=== PATIENT | male | born 1980 | race Caucasian/White ===

== ENCOUNTER 2018-01-04 19:50 | Inpatient (IN) | payer OTHER ==
[~2018-01-04] VITALS: Ht 185.4 cm; Wt 106.6 kg
--- NOTE | 2018-01-04 19:56 | NUR ---
CALLED FOR PT NO ANSWER
[2018-01-04] MEDS ORDERED: KETAMINE HCL 500 MG/10 ML INJ IV ONE (21:00)
[2018-01-04] MEDS ORDERED: CLINDAMYCIN PHOSPHATE IV 600 MG in IV DEXTROSE 5% 100 ML IV ONE (21:00)
[2018-01-04] MEDS ORDERED: IV NORMAL SALINE 1000 ML BAG IV ONE (21:00)
[2018-01-04] MEDS ORDERED: VANCOMYCIN IV 1,000 MG in IV DEXTROSE 5% 250 ML IV ONE (21:00)
[2018-01-04] MEDS ORDERED: GENTAMICIN SULFATE INJ 80 MG in IV DEXTROSE 5% 100 ML IV ONE (21:00)
--- NOTE | 2018-01-04 21:00 | NUR ---
pt aox4. here with c/o swelling and pain to L hand x2days. pt with pain of 9/10, otherwise pt in no acute distress. pt respirations are equal and unlabored. significant other is at bedside
[2018-01-04] MEDS ORDERED: GENTAMICIN SULFATE 80 MG/2 ML VIAL ONE (21:24)
[2018-01-04] MEDS ORDERED: FENTANYL CITRATE 100 MCG/2 ML AMPUL IV ONE (21:30)
[2018-01-04] MEDS ORDERED: FENTANYL CITRATE 100 MCG/2 ML AMPUL ONE (21:32)
[2018-01-04 21:39] LABS: BASOPHILS % (AUTO) 0.3 % (0.0-2.0); EOSINOPHILS # (AUTO) 0.1 K/uL (0.0-0.7); EOSINOPHILS % (AUTO) 1.1 % (0.0-7.0); HEMATOCRIT 37.3 % (36.7-47.1); HEMOGLOBIN 12.9 g/dL (12.5-16.3); LYMPHOCYTES # (AUTO) 1.6 K/uL (20.0-40.0); LYMPHOCYTES % (AUTO) 14.2 % (20.5-51.5); MEAN CORPUSCULAR HEMOGLOBIN 27.8 uug (23.8-33.4); MEAN CORPUSCULAR HGB CONC 35 g/dL (32.5-36.3); MEAN CORPUSCULAR VOLUME 80.3 fL (73.0-96.2); MONOCYTES # (AUTO) 0.7 K/uL (2.0-10.0); MONOCYTES % (AUTO) 5.7 % (0.0-11.0); NEUTROPHILS % (AUTO) 78.7 % (38.5-71.5); PLATELET COUNT (AUTO) 156 K/uL (152-348); RED BLOOD CELL COUNT(AUTO) 4.65 MIL/uL (4.06-5.63); WHITE BLOOD COUNT (AUTO) 11.4 K/uL (3.6-10.2)
--- NOTE | 2018-01-04 21:47 | NUR ---
US at bedside.
[2018-01-04 21:48] LABS: CREATININE 0.9 mg/dL (0.6-1.3); POTASSIUM 3.5 mmol/L (3.5-5.1)
[2018-01-04 22:01] LABS: BILIRUBIN,DIRECT 0.3 mg/dL (0.0-0.2); BILIRUBIN,TOTAL 1.3 mg/dL (0.2-1.0); TOTAL PROTEIN, SERUM 7.3 g/dL (6.4-8.2)
[2018-01-04] MEDS ORDERED: CLINDAMYCIN PHOSPHATE 600 MG/4 ML VIAL ONE (22:20)
--- NOTE | 2018-01-04 22:25 | NUR ---
xray at bedside
--- NOTE | 2018-01-04 22:55 | NUR ---
epic paged per .
[2018-01-05] MEDS ORDERED: VANCOMYCIN IV 200 ML ONE (00:57)
--- NOTE | 2018-01-05 01:42 | NUR ---
Patient is resting comfortably in bed with eyes closed
--- NOTE | 2018-01-05 02:23 | NUR ---
Chandan francis in ED - 01/05/18 at 0225 by RUSSELL pt ambulated to bathroom and back to bed with steady and stable gait. in no acute distress
--- NOTE | 2018-01-05 02:45 | NUR ---
report given to inpt nurse Fina SHARMA. fluids infusing during transfer.
[2018-01-05 03:08] VITALS: BP 122/71
[2018-01-05] MEDS ORDERED: ACETAMINOPHEN 325 MG TABLET PO PRN (03:30)
[2018-01-05] MEDS ORDERED: Z GUARD REMEDY PASTE 57 GM TUBE TOP PRN (03:30)
[2018-01-05] MEDS ORDERED: ONDANSETRON 4 MG/2 ML VIAL IV PRN (03:30)
[2018-01-05] MEDS: ENOXAPARIN SODIUM 40 MG/0.4 ML DISP.SYRIN SQ SCH (03:42)
[2018-01-05] MEDS: FENTANYL CITRATE 100 MCG/2 ML AMPUL IV PRN ×2 (03:50→18:12)
--- NOTE | 2018-01-05 03:50 | NUR ---
NEW ADMIT FROM ER, ADMITTED FOR CELLULITIS OF LEFT HAND. PATIENT IS AAOX3 C/O PAIN 10/10 IN LEFT HAND, PAIN MEDS GIVEN ORDERED. SAFETY MEASURES IN PLACE
--- NOTE | 2018-01-05 05:33 | NUR ---
[facility] CALLED AND LEFT MESSAGE FOR SEPSIS REASSESSMENT FLUID CHALLENGE. VSS ASSESSED AND WNL
[2018-01-05] MEDS ORDERED: PIPERACILLIN/TAZO 4.5 GM VIAL IV ONE (06:05)
[2018-01-05] MEDS: PIPERACILLIN SODIUM/TAZOBACTAM 4.5 G in IV DEXTROSE 5% 50 ML IV SCH ×3 (06:53→21:31)
--- NOTE | 2018-01-05 07:10 | NUR ---
RECEIVED REPORT FROM TELE MARKETING EXECUTIVE NURSE, PATIENT IN BED ASLEEP, NO EVIDENCE OF DISTRESS NOTED AT THIS TIME, BED IN LOW POSITION, SIDE RAILS UP X2. PATIENTS SIGNIFICANT OTHER AT BEDSIDE.
[2018-01-05 07:23] LABS: *BILIRUBIN,URIN NEGATIVE (NEGATIVE); *BLOOD, URINE NEGATIVE (NEGATIVE); *CLARITY,URINE CLEAR (CLEAR); *KETONES,URINE NEGATIVE (NEGATIVE); *PROTEIN,URINE 1+ (NEGATIVE); LEUKOCYTE ESTERASE ,URINE NEGATIVE (NEGATIVE); NITRITE, URINE NEGATIVE (NEGATIVE); PH,URINE 6.5 (5.0-8.0); UGLUCOSE NEGATIVE (NEGATIVE)
[2018-01-05 07:58] LABS: *COLOR,URINE DARK YELLOW (YELLOW)
[2018-01-05 07:59] LABS: BACTERIA,URINE NONE SEEN /HPF (NONE SEEN); CALCIUM OXALATE CRYSTALS,UR FEW /HPF (NONE SEEN); MUCUS,URINE FEW /LPF (0-FEW); RBC,URINE 0-3 /HPF (0-3); SQUAMOUS EPITHELIAL CELL,UR FEW /HPF (NONE SEEN)
--- NOTE | 2018-01-05 10:04 | NUR ---
Clinical Pharmacy Note: Vancomycin Pharmacy to Dose Subjective: To start vancomycin in this 37 y/o male for indication of "documented infection" (no MD note yet, elevated temp) Objective: weight 106 kg height 185 cm BMI 31 BUN 9 Scr 0.9 Wbc 11.4 temp 99.7 1gm vanco given in ER 01/05 @ 0103 Assessment/Plan Will start regimen of 1500mg Q8hr for estimated trough of 16.5. First dose today at 0900. Trough ordered beofre 4th scheduled dose, due tomorrow am at 0830. Will check trough tomorrow am and adjust as needed. Will dose per level if renal fxn were to become unstable. Will follow
[2018-01-05] MEDS: VANCOMYCIN IV 1,500 MG in IV DEXTROSE 5% 500 ML IV SCH ×2 (10:48→16:15)
[2018-01-05 11:40] VITALS: BP 119/73
[2018-01-05 15:40] VITALS: BP 115/64
[2018-01-05] MEDS: FENTANYL CITRATE 100 MCG/2 ML AMPUL IV ONE (16:26)
[2018-01-05 17:20] VITALS: BP 115/75
--- NOTE | 2018-01-05 18:33 | NUR ---
PATIENT HAS BEEN SOMEWHAT COOPERATIVE WITH CARE TODAY. SHE DID NOT ATTEMPT TO GET OUT OF BED, BUT CONTINUED TO SCREAM OUT OCCASIONALLY. MARILYN IS DRAINING YELLOW CLEAR URINE, NO DISTRESS NOTED AT THIS TIME, BED IN LOW POSITION, SIDE RAILS UP X2. BED ALARM ON. Addendum: 01/05/18 at 1835 by FADI PERDOMO RN DISREGARD NOTEWRONG PATIENT
--- NOTE | 2018-01-05 18:35 | NUR ---
PATIENT HAS BEEN COOPERATIVE WITH CARE, ONE EPISODE OF CRYING IN PAIN, AND FENTANYL ADMINISTERED. CURRENTLY PATIENT HAS NO DISTRESS NOTED. PATIENT IS STANDING AND EATING AT BEDSIDE. ADVISED PATIENT TO ELEVATE ARM AND TO RELAX IN BED.
--- NOTE | 2018-01-05 20:00 | NUR ---
nsg: pt received awake, but drowsy. no acute distress noted. bp with sbp 85, cont to monitor. gf at the bedside. left arm edema, elevated on 2 pillows. cont to monitor.
[2018-01-05 20:16] VITALS: BP 85/41
[2018-01-05 21:00] VITALS: BP 90/55
--- NOTE | 2018-01-05 21:00 | NUR ---
nsg: rechecked bp, 90/55. cont to monitor.
[2018-01-06] MEDS: VANCOMYCIN IV 1,500 MG in IV DEXTROSE 5% 500 ML IV SCH (00:04)
[2018-01-06 00:57] VITALS: BP 104/66
[2018-01-06 04:37] VITALS: BP 117/71
[2018-01-06] MEDS: ENOXAPARIN SODIUM 40 MG/0.4 ML DISP.SYRIN SQ SCH (06:00)
[2018-01-06] MEDS: PIPERACILLIN SODIUM/TAZOBACTAM 4.5 G in IV DEXTROSE 5% 50 ML IV SCH ×3 (06:00→21:38)
[2018-01-06] MEDS: FENTANYL CITRATE 100 MCG/2 ML AMPUL IV PRN ×5 (06:08→22:24)
--- NOTE | 2018-01-06 07:30 | NUR ---
Pt is sleeping in bed. No apparent s/s of immediate distress, discomfort, SOB, pain.
--- NOTE | 2018-01-06 09:00 | NUR ---
Patti waiting for pharmacy to does
[2018-01-06 09:03] LABS: BASOPHILS # (AUTO) 0.1 K/uL (0.0-8.0); BASOPHILS % (AUTO) 0.6 % (0.0-2.0); EOSINOPHILS # (AUTO) 0.1 K/uL (0.0-0.7); HEMATOCRIT 36.5 % (36.7-47.1); HEMOGLOBIN 12.9 g/dL (12.5-16.3); LYMPHOCYTES # (AUTO) 1.2 K/uL (20.0-40.0); MEAN CORPUSCULAR HEMOGLOBIN 28.2 uug (23.8-33.4); MEAN CORPUSCULAR HGB CONC 35 g/dL (32.5-36.3); MEAN CORPUSCULAR VOLUME 79.6 fL (73.0-96.2); MONOCYTES # (AUTO) 0.6 K/uL (2.0-10.0); MONOCYTES % (AUTO) 6.2 % (0.0-11.0); NEUTROPHILS # (AUTO) 8.2 K/uL (1.8-8.9); NEUTROPHILS % (AUTO) 80.2 % (38.5-71.5); PLATELET COUNT (AUTO) 167 K/uL (152-348); RED BLOOD CELL COUNT(AUTO) 4.59 MIL/uL (4.06-5.63); WHITE BLOOD COUNT (AUTO) 10.2 K/uL (3.6-10.2)
[2018-01-06 09:44] LABS: BILIRUBIN,TOTAL 0.7 mg/dL (0.2-1.0); CREATININE 0.7 mg/dL (0.6-1.3); MAGNESIUM 1.9 mg/dL (1.8-2.4); PHOSPHOROUS 3.7 mg/dL (2.5-4.9); POTASSIUM 3.6 mmol/L (3.5-5.1); TOTAL PROTEIN, SERUM 6.6 g/dL (6.4-8.2)
[2018-01-06 09:54] VITALS: BP 117/83
[2018-01-06 10:07] LABS: THYROID STIMULATING HORMONE 0.375 mIU/mL (0.358-3.740)
[2018-01-06 11:20] VITALS: BP 116/71
[2018-01-06] MEDS: VANCOMYCIN IV 2,000 MG in IV NORMAL SALINE 500 ML IV SCH ×2 (11:47→17:25)
--- NOTE | 2018-01-06 13:28 | NUR ---
Clinical Pharmacy Note: Vancomycin Pharmacy to Dose Subjective: To continue vancomycin in this 37 y/o male for indication of "documented infection" (cellulitis) Objective: weight 106 kg height 185 cm BMI 31 BUN 7 Scr 0.7 Wbc 10.4 temp 98.5 Vancomycin trough :9.4 today at 0830 Assessment/Plan Since Vancomycin trough is subtherapeutic, will increase dose to 2 gram every 7 hrs(first dose today at 1100) and draw trough by 4th dose(ordered for tomorrow at 0730) for expected trough around 16. Will follow the level for further dosing.
[2018-01-06 14:26] VITALS: BP 121/74
--- NOTE | 2018-01-06 14:35 | NUR ---
Pt alert and oriented times 4. Pt states pain 10/10 on the left arm. VS stable. Pt is placed on tele to monitor for and ADRs to fentanyl
--- NOTE | 2018-01-06 17:31 | NUR ---
Pt is moaning and groaning and asking for his girlfriend. Pt states he wants to check himself out. Able to convince him to stay and informed him that the next pain medication would be given as soon as it was due
--- NOTE | 2018-01-06 19:15 | NUR ---
Girlfriend is by bedside. Pt is happy that she is here. Pt apologized for stating he wanted to leave. Pt is under no immediate pain, distress, discomfort or SOB.
[2018-01-06 20:00] VITALS: BP 121/72
[2018-01-07 00:19] VITALS: BP 119/68
[2018-01-07] MEDS: VANCOMYCIN IV 2,000 MG in IV NORMAL SALINE 500 ML IV SCH (01:25)
[2018-01-07] MEDS: FENTANYL CITRATE 100 MCG/2 ML AMPUL IV PRN ×4 (01:25→11:36)
--- NOTE | 2018-01-07 04:54 | NUR ---
continue to have left arm pain, kept elevated with pillow, vss,afebrile, continue with antibiotics. all needs attended. no significant changes overnight.
[2018-01-07] MEDS: PIPERACILLIN SODIUM/TAZOBACTAM 4.5 G in IV DEXTROSE 5% 50 ML IV SCH ×2 (05:02→13:59)
[2018-01-07 05:17] VITALS: BP 113/70
[2018-01-07] MEDS: FENTANYL CITRATE 100 MCG/2 ML AMPUL IV ONE (07:31)
--- NOTE | 2018-01-07 07:47 | NUR ---
PATIENT RESTING COMFORTABLY IN BED AT THIS TIME. COMPLAINING OF LEFT ARM PAIN. LEFT ARM ELEVATED AT THIS TIME AND WILL CONTINUE TO MONITOR AND EDUCATE PATIENT ON IMPORTANCE OF ELEVATION TO DECREASE SWELLING/EDEMA. STABLE CONDITION AT THIS TIME. PAIN MANAGEMENT WILL BE PROVIDED. WILL MONITOR BP. CALL LIGHT WITHIN REACH.
[2018-01-07 08:54] VITALS: BP 119/76
[2018-01-07] MEDS ORDERED: ENOXAPARIN SODIUM 40 MG/0.4 ML DISP.SYRIN SQ SCH (09:00)
--- NOTE | 2018-01-07 11:04 | NUR ---
VITAL SIGNS STABLE. VERBALIZES PAIN IN LEFT ARM/HAND. PAIN MANAGEMENT BEING PROVIDED. LEFT ARM IS BEING ELEVATED ON PILLOWS AT THIS TIME TO ALLEVIATE SWELLING. POSSIBLE DISCHARGE TODAY. STABLE CONDITION, NO S/S OF DISTRESS. CALL LIGHT WITHIN REACH.
[2018-01-07] MEDS ORDERED: NICOTINE 21 MG/24HR PATCH TD SCH (11:30)
[2018-01-07 11:39] VITALS: BP 119/76
[2018-01-07 15:44] VITALS: BP 106/67
[2018-01-07] MEDS ORDERED: MORPHINE SULFATE 4 MG/1 ML DISP.SYRIN IV ONE (15:45)
--- NOTE | 2018-01-07 17:02 | NUR ---
Clinical Pharmacy Note: Vancomycin Pharmacy to Dose Subjective: To continue vancomycin in this 37 y/o male for indication of "documented infection" (cellulitis) Objective: weight 106 kg height 185 cm BMI 31 BUN 7 (01/06) Scr 0.7 (01/06) Wbc 10.2 (01/06) temp 98.5 Vancomycin trough :24.9 (drawn today at 0730) vanco random level: pending (drawn at 1600) Assessment/Plan Since Vancomycin trough is supra-therapeutic, will hold vanco for now. Will check vanco random level today at 1600. Will follow the level for further dosing. Addendum: 01/07/18 at 1859 by MARIANA KUMAR VANCOMYCIN LEVEL 9.4 CHANGE VANCOMYCIN TO 2GM IVPB [id number] ESTIMATE TROUGH 16
[2018-01-07 18:16] LABS: CREATININE 1.3 mg/dL (0.6-1.3); POTASSIUM 3.6 mmol/L (3.5-5.1); VANCOMYCIN,RANDOM 9.4 ug/mL (18.0-26.0)
--- NOTE | 2018-01-07 19:20 | NUR ---
RECEIVED PT IN BED. AAOX4. DENIES ANY PAIN OR SOB AT THIS TIME. O2 SAT AT 96% ON RA. IV SITE ON RIGHT HAND INTACT AND PATENT. IN NO ACUTE DISTRESS. GF ON BEDSIDE. SAFETY MEASURE INITIATED AND CALL [facility] WITHIN REACHED.
--- NOTE | 2018-01-07 20:00 | NUR ---
Pt contemplating on going AMA. Encourage to stay at the hospital due to his current condition. Education provided. Pt stated he will think about it.
--- NOTE | 2018-01-07 20:05 | NUR ---
Informed PILLOW FILLER Rodrigo that pt is thinking of leaving AMA and Doctor Rodrigo stated that we cannot force pt to stay at the hospital if he does not want to.
[2018-01-07 20:37] VITALS: BP 107/70
[2018-01-07] MEDS ORDERED: VANCOMYCIN IV 2,000 MG in IV DEXTROSE 5% 500 ML IV SCH (21:00)
--- NOTE | 2018-01-07 21:00 | NUR ---
Pt decided to stay at the hospital after GF encourage him to stay and after this nurse educated him the importance of staying at the hospital and getting his medications.
--- NOTE | 2018-01-07 22:45 | NUR ---
Pt wanted to leave AMA, even after this nurse provided education on importance of staying at the hospital. Pt signed AMA paper work. IV removed and ID band removed.
== END 2018-01-07 23:00 | disposition left against medical advice (07) | DRG 364 ==
LOC: ER 19:51 → MED 01-05 02:30 → TELE 01-06 19:08 → MED 01-07 15:49 → TELE 01-07 18:00
PROVIDERS: ADMIT Nurse Practitioner Acute Care; ATTEND Nurse Practitioner Acute Care
PROC: 0KBB0ZZ Excision of Left Lower Arm and Wrist Muscle, Open Approach (ICD-10-PCS; principal; 2018-01-07)
DX: L03.114 Cellulitis of left upper limb (principal); F19.20 Other psychoactive substance dependence, uncomplicated; B19.20 Unspecified viral hepatitis C without hepatic coma; F17.210 Nicotine dependence, cigarettes, uncomplicated
CPT/HCPCS: 36415; 70030-TC; 71045; 73060; 73090; 83605; 83735; 84100; 84443; 85025; 85730; 87040; 87070; 87077; 87086; 93005; 93307; A4663; J1580; J1650; J2270; J2543; J3010; J3370; J3490; J7030; J7040; J7060